=== PATIENT | male | born 1955 | race Caucasian/White ===

== ENCOUNTER → 2020-09-11 09:21 | Outpatient (CLI) | payer OTHER, SELFPAY ==
[2020-08-16 11:03] VITALS: BMI 47.4
--- NOTE | 2020-09-13 09:30 | PFT ---
INTRODUCTION: The patient is a 64-year-old male that presents for pulmonary function studies secondary to a diagnosis of respiratory failure. Respiratory therapy reports good patient effort. Bronchodilators were used during testing. INTERPRETATION: Forced expiration spirometry demonstrates the presence of a very severe large airways obstructive ventilatory defect. There was no significant response to aerosolized bronchodilators, based upon strict ATS criteria. Spirograms are of good quality but do not plateau indicating slow emptying of the lungs. Body plethysmography was performed and revealed a decreased TLC to 3.63 L, 57% of predicted, indicative of a severe restrictive ventilatory impairment. Diffusing capacity by single breath CO is severely reduced at 31% of predicted. IMPRESSION: Irreversible severe mixed ventilatory defect with symmetric reduction in diffusing capacity.
== END ==
PROVIDERS: Referring Provider Internal Medicine Critical Care Medicine; Visit Provider Internal Medicine Critical Care Medicine
DX: J96.11 Chronic respiratory failure with hypoxia (principal)
CPT/HCPCS: 94060; 94726; 94729

== ENCOUNTER → 2020-09-25 11:27 | Outpatient (CLI) | payer OTHER, SELFPAY ==
[2020-08-16 11:03] VITALS: BMI 47.4
[2020-09-25 12:30] VITALS: PULSE 103; PULSE 111; PULSE 119; PULSE 123; PULSE 124; PULSE 130; PULSE 131; PULSE 89; O2SAT 89; O2SAT 90; O2SAT 91; O2SAT 92; O2SAT 93
--- NOTE | 2020-09-25 12:36 | CPS ---
Patient states that he wears 3L of oxygen at home. On room air patients sat's were 89% therefore test was started on 3L. Patients sat's were maintained greater than 90% for the remainder of the test on 3L.
--- NOTE | 2020-09-26 10:16 | PCM.PSN.6M ---
PSN 6 Minute Walk Test 6 Minute Walk Test 6 Minute Walk Test: 6 Minute Walk Test PSN:6-Minute Walk Test Start: 09/25/20 12:33 Freq: Status: Active Protocol: [id number] Document 09/25/20 12:30 ADELE (Rec: 09/25/20 12:38 [id number]) 6 Minute Walk Test Date Performed 09/25/20 Time Performed 12:30 Height 5 ft 9 in Weight: 309 lb Weight in Pounds 309.[address]: Morales Siu Assistive device used: None Pre-test Oxygen Delivery Method Room Air Pulse Ox (%) 89 Pulse Rate (60-100 beats/min) 89 1st minute Oxygen Flow Rate (L/min) (L/min) 3 Oxygen Delivery Method Nasal Cannula Pulse Ox (%) 92 Pulse Rate (60-100 beats/min) 123 H 2nd minute Oxygen Flow Rate (L/min) (L/min) 3 Oxygen Delivery Method Nasal Cannula Pulse Ox (%) 92 Pulse Rate (60-100 beats/min) 111 H 3rd minute Oxygen Flow Rate (L/min) (L/min) 3 Oxygen Delivery Method Nasal Cannula Pulse Ox (%) 92 Pulse Rate (60-100 beats/min) 119 H 4th minute Oxygen Flow Rate (L/min) (L/min) 3 Oxygen Delivery Method Nasal Cannula Pulse Ox (%) 91 Pulse Rate (60-100 beats/min) 124 H 5th minute Oxygen Flow Rate (L/min) (L/min) 3 Oxygen Delivery Method Nasal Cannula Pulse Ox (%) 92 Pulse Rate (60-100 beats/min) 130 H 6th minute Oxygen Flow Rate (L/min) (L/min) 3 Oxygen Delivery Method Nasal Cannula Pulse Ox (%) 90 Pulse Rate (60-100 beats/min) 131 H Post-test Oxygen Flow Rate (L/min) (L/min) 3 Oxygen Delivery Method Nasal Cannula Pulse Ox (%) 93 Pulse Rate (60-100 beats/min) 103 H Dyspnea Guille Scale (0-10) 4 Exertion Guille Scale (6-20) 14 Full Laps Walked 10 Partial Lap, Number of Tiles Walked 28 Total Distance Walked (ft) 618 09/25/20 12:36 Cardiopulmonary Services by Laxmi King Patient states that he wears 3L of oxygen at home. On room air patients sat's were 89% therefore test was started on 3L. Patients sat's were maintained greater than 90% for the remainder of the test on 3L. Initialized on 09/25/20 12:36 - END OF NOTE Interpretation Interpretation: The patient ambulated 618 feet over the course of 6 minutes beginning on room air without assistive devices. Pretesting oxygen saturation was noted to be 89% on room air. The patient was subsequently placed on 3 L/min of oxygen for testing purposes. With ambulation, the jet oxygen saturation was 90%. Recommendations Recommendations: 3 L/min of supplemental oxygen should be utilized at all times.
== END ==
PROVIDERS: Referring Provider Internal Medicine Critical Care Medicine; Visit Provider Internal Medicine Critical Care Medicine
DX: J96.11 Chronic respiratory failure with hypoxia (principal)
CPT/HCPCS: 94618

== ENCOUNTER → 2020-11-06 13:40 | Outpatient (CLI) | payer MEDICARE, SELFPAY ==
[2020-10-12 08:18] VITALS: BMI 47.5
--- NOTE | 2020-11-06 13:53 | RAD_ITS ---
STUDY: X-RAY - LUMBAR SPINE REASON FOR EXAM: Male, 64 years old. BACK PAIN TECHNIQUE: 3 view(s) of the lumbar spine were obtained. COMPARISON: None FINDINGS: Normal lumbar lordosis. There is no substantial scoliosis. There is a normal alignment of the vertebrae. There is multilevel endplate spondylosis of the lumbar vertebrae. There is disc space narrowing L4-L5 L5-S1. There is degenerative change of the SI joints. There phleboliths in the pelvis. The soft tissue structures are unremarkable. RAD/Lumbar Spine 2 or 3 Views IMPRESSION: Degenerative changes of the spine, as detailed above. No apparent acute loss of height or alignment. Electronically Signed: Jany Ray MD at 4:05 EDT Tel , Service support ,
== END ==
PROVIDERS: Referring Provider Anesthesiology Pain Medicine; Visit Provider Anesthesiology Pain Medicine
DX: M54.9 Dorsalgia, unspecified (principal)
CPT/HCPCS: 72100

== ENCOUNTER 2020-11-19 12:04 | Emergency (ER) | payer OTHER, SELFPAY ==
[2020-10-12 08:18] VITALS: BMI 47.5
[2020-11-19] VITALS (9 sets, daily range): BP systolic 123–141; BP diastolic 65–86; PULSE 94–111; RESP 16–22; TEMP 37.1; O2SAT 91–98; BMI 46.5
--- NOTE | 2020-11-19 12:57 | RAD_ITS ---
STUDY: X-RAY CHEST REASON FOR EXAM: Male, 64 years old. Chest pain TECHNIQUE: PA and lateral views of the chest. COMPARISON: None. FINDINGS: EKG electrodes are seen. Increased markings at the lung bases slightly worse on the left side suggestive of either bibasilar atelectasis and/or infiltrates. Blunting of the left costophrenic angle. Normal size heart. Normal mediastinum and hortencia. Normal visualized pulmonary arteries. Normal visualized aortic arch and descending thoracic aorta. There are degenerative changes of the visualized thoracic spine. Normal visualized ribs, clavicles, and shoulders. There is no demonstrated abnormality of the visualized soft tissue structures of the upper abdomen. RAD/Chest PA and Lateral IMPRESSION: Atelectasis and/or infiltrates at the lung bases worse on the left side. There is blunting of the left costophrenic angle. Electronically Signed: Abimael London MD at 13:57 EDT , Service support ,
--- NOTE | 2020-11-19 12:57 | EKG12_ITS ---
Test Reason : SOB Blood Pressure : / mmHG Vent. Rate : 095 BPM Atrial Rate : 095 BPM P-R Int : 146 ms QRS Dur : 072 ms QT Int : 326 ms P-R-T Axes : 041 -23 040 degrees QTc Int : 409 ms Normal sinus rhythm Leftward axis Poor R wave progression Abnormal ECG Confirmed by KAREN HARRELL, SHIV ([id number]), manager editorial NUZHAT CACERES ([id number]) on 11/21/2020 9:25:49 AM Referred By: BB Confirmed By:SHIV JONES MD
--- NOTE | 2020-11-19 12:58 | EDS_ITS ---
HPI History of Present Illness Chief Complaint: Shortness of Breath Informant: patient Onset/Context/Timing Onset: Month(s) Context: gradual Timing: Continuous Current Severity: Mild Maximum Severity: Mild Associated Symptoms Chest Pain: Positive for None Narrative Narrative: 58-year-old male history of lung disease on home O2. He denies COPD. Denies any prior PE. Has had prior pleural effusions. Apparently saw the [facility] on Thursday had a negative chest x-ray. He has had a pleural effusion which she needed surgery drainage before by the [facility] 2 years ago. After that he developed his DVT. He is on no blood thinners. He denies any chest pain hemoptysis. He denies any fever or chills. PE Risk Factors: Positive for Prior DVT or PE; Negative for Cancer, OCP + Smoking + > 35, Recent immobilization, Recent surgery and Recent travel Prior similar symptoms: Yes Recent Illness/Hospitalization: No PFSH [facility] Medical History (Updated 11/19/20 @ 16:[address] Davide Covarrubias MD) Depression Diabetes mellitus type 2, controlled Dyspnea History of pleural effusion Pleural effusion Tobacco abuse Home Medications amlodipine 10 mg-benazepril 20 mg capsule 1 cap PO DAILY 08/16/20 [History Last Taken Unknown] aripiprazole 5 mg tablet 5 mg PO DAILY 08/16/20 [History Last Taken Unknown] ascorbic acid (vitamin C) 500 mg capsule mg PO 08/16/20 [History Last Taken Unknown] atorvastatin 80 mg tablet 80 mg PO DAILY 08/16/20 [History Last Taken Unknown] cyanocobalamin (vitamin B-12) 1,000 mcg capsule 1,000 mcg PO DAILY 08/16/20 [History Last Taken Unknown] furosemide 40 mg tablet 60 mg PO DAILY tablet 08/16/20 [History Last Taken Unknown] gabapentin 300 mg capsule 300 mg PO DAILY 08/16/20 [History Last Taken Unknown] glipizide 10 mg tablet 15 mg PO DAILY tablet 08/16/20 [History Last Taken Unknown] hydroxyzine pamoate 25 mg capsule 25 mg PO TID 08/16/20 [History Last Taken Unknown] melatonin 3 mg capsule 3 mg PO HS PRN 08/16/20 [History Last Taken Unknown] metformin 500 mg tablet 500 mg PO BID 08/16/20 [History Last Taken Unknown] oxycodone-acetaminophen 5 mg-325 mg tablet 1 tablet PO TID PRN 08/16/20 [History Last Taken Unknown] pioglitazone 30 mg tablet 30 mg PO DAILY 08/16/20 [History Last Taken Unknown] polysaccharide iron complex 150 mg iron capsule 150 mg PO DAILY 08/16/20 [History Last Taken Unknown] potassium chloride 20 mEq/15 mL oral liquid 30 meq PO DAILY ml 08/16/20 [History Last Taken Unknown] trazodone 100 mg tablet 300 mg PO DAILY PRN tablet 08/16/20 [History Last Taken Unknown] albuterol sulfate 90 mcg/actuation aerosol inhaler 2 puff INHALATION Q6H PRN 10/12/20 [History Last Taken Unknown] budesonide-formoterol HFA 160 mcg-4.5 mcg/actuation aerosol inhaler 2 puff INHALATION BID 10/12/20 [History Last Taken Unknown] prednisone 40 mg PO DAILY 5 Days #10 tab 11/19/20 [Rx Last Taken Unknown] Allergy/AdvReac Type Severity Reaction Status Date / Time indomethacin [From Indocin] Allergy Unknown Other Verified 11/19/20 12:06 morphine Allergy Unknown Vomiting Verified 11/19/20 12:06 lisinopril AdvReac Unknown Cough Verified 11/19/20 12:06 Surgical History H/O wrist surgery History of ankle surgery History of appendectomy History of hernia surgery History of lung surgery History of pelvic surgery Hx of knee surgery Social History Smoking Status: Former smoker quit date: 05/11/03 pack-years: 9 ROS ROS ED ROS Narrative Complaint shortness of breath. No fever or chills. No chest pain. No new cough. No hemoptysis. Review of Systems ROS Unobtainable: Denies due to encephalopathy Constitutional Constitutional ED: Denies chills or fever(s) Eyes Eyes: Denies change in vision ENT ENT ED: Denies ear pain or sore throat Cardiovascular Cardiovascular: Denies chest pain or palpitations Respiratory/Chest Respiratory/Chest: Reports dyspnea; Denies cough or sputum Gastrointestinal Gastrointestinal: Denies abdominal pain, diarrhea, nausea or vomiting Genitourinary Genitourinary ED: Denies dysuria or hematuria Musculoskeletal Musculoskeletal: Denies myalgias Integumentary Denies rash Neurologic Neurologic: Denies headache(s) Psychiatric Psychiatric: Denies depression Endocrine Endocrinology: Denies polyuria Hematologic/Lymphatic Hematologic/Lymphatic: Denies easy bruising Allergic/Immunologic Allergic/Immunologic ED: Denies urticaria EXAM Physical Exam Narrative Exam Narrative: Or male on oxygen. Vital signs stable afebrile. On 3 L 97%. He does not look septic or toxic. He is in no respiratory distress. HEENT exam unremarkable. Neck nontender no JVD. No lymphadenopathy. Lungs few scant expiratory wheezes. No rales or rhonchi. Heart regular rhythm no murmur. Abdomen soft nontender. Obese. Moving all 4 extremities. Trace edema bilaterally. States that is chronic. Neurologically is awake and alert. No focal motor deficits. Const Vital Signs: 11/19/20 12:05 11/19/20 12:41 11/19/20 12:43 Temperature 98.8 F Temperature Source Temporal Pulse Rate 111 H 97 Respiratory Rate 22 H 20 H Respiratory Effort Normal Non-Labored Respiratory Depth Normal Respiratory Pattern Normal Blood Pressure 123/86 H 126/65 H Blood Pressure Mean 98 85 Pulse Ox 91 97 Oxygen Delivery Method Nasal Cannula Nasal Cannula Nasal Cannula Oxygen Flow Rate (L/min) 3 3 2 11/19/20 12:45 11/19/20 13:14 11/19/20 13:17 Temperature Temperature Source Pulse Rate 94 Respiratory Rate 16 Respiratory Effort Respiratory Depth Respiratory Pattern Normal Blood Pressure Blood Pressure Mean Pulse Ox 97 Oxygen Delivery Method Nasal Cannula Nasal Cannula Oxygen Flow Rate (L/min) 3 3 11/19/20 13:23 11/19/20 15:05 11/19/20 16:02 Temperature Temperature Source Pulse Rate 95 98 100 Respiratory Rate 19 H 16 18 Respiratory Effort Respiratory Depth Respiratory Pattern Blood Pressure 126/83 H 141/76 H Blood Pressure Mean 97 97 Pulse Ox 96 98 96 Oxygen Delivery Method Nasal Cannula Nasal Cannula Nasal Cannula Oxygen Flow Rate (L/min) 3 3 3 Positive well nourished, well developed and obese; Negative for cachectic, contractures or unkempt General Appearance ED: well developed and NAD; Negative for unkempt, cachectic or contractures Nutritional Appearance: obese; Negative for cachectic HEENT Reports moist mucous membranes atraumatic; Negative for trauma or tenderness Eyes PERRL and EOMs intact bilaterally General Eye ED: Negative for pale conjunctiva or scleral icterus Neck no lymphadenopathy, supple, no meningeal signs and no JVD General: Negative for tenderness Resp normal respiratory effort Auscultation: wheezes Cardio regular rate, regular rhythm, S1 normal heart sound, S2 normal heart sound and no murmurs GI non-tender, non-distended and no masses Auscultation: normoactive bowel sounds Palpation: soft; Negative for tender, guarding or rebound tenderness present Back/Spine no CVA tenderness and normal to inspection General Back: Negative for CVA tenderness Extremity normal to inspection General Extremety ED: Negative for edema or tenderness General Extremity: Negative for edema Neuro oriented x3 Sensorium / Orientation: alert, oriented to person, oriented to place and orientation impaired Psych mental status grossly normal Appearance: Negative for unkempt Thought Process: normal thought process Skin no wounds Lesions: no lesions Rashes: no rashes MDM MDM MDM Narrative Medical decision making narrative: Older male with underlying lung disease. Treated home with aerosols. Complaint of shortness of breath for a month. Prior history of pleural effusion prior DVT but no PE. Undergo a cardiac work- up along with a D-dimer. To be treated with DuoNeb aerosol and Solu-Medrol IV. Repeat exam at 4:15 PM patient is doing well. Said his breathing is much improved after the aerosol treatment and the IV steroids. He is comfortably discharged home. He is in no distress. We went over all his test results and chest x-ray. His breathing is clear currently with no wheezing and no distress. Lab Data Attestation: I reviewed the patient's lab results. Lab results narrative: White count 13. Hemoglobin 13. Electrolytes unremarkable gap of 4 creatinine 0.8. High-sensitivity troponin is normal as is his D-dimer at 0.4. Labs: Laboratory Results - last 24 hr 11/19/20 11/19/20 11/19/20 13:25 13:25 13:25 WBC 13.2 H RBC 4.74 Hgb 13.3 Hct 44.4 MCV 93.7 MCH 28.1 MCHC 30.0 L RDW Std Deviation 49.4 H RDW Coeff of Viky 14.3 Plt Count 219 MPV 10.7 Immature Gran % (Auto) 0.400 Neut % (Auto) 79.3 H Lymph % (Auto) 12.6 L [place] % (Auto) 6.8 Eos % (Auto) 0.4 Baso % (Auto) 0.5 Absolute Neuts (auto) 10.4 H Absolute Lymphs (auto) 1.66 Nucleated RBC % 0 PT 13.0 INR 1.0 D-Dimer Quant (PE/DVT) 0.40 Sodium 141 Potassium 3.8 Chloride 104 Carbon Dioxide 33.0 H Anion Gap 4 L BUN 20 H Creatinine 0.82 Estim Creat Clear Calc 88.61 Est GFR (MDRD) Af Amer 120 Est GFR (MDRD) Non-Af 99 BUN/Creatinine Ratio 24.2 H Glucose 139 H Calcium 8.6 Troponin I High Sens 4.4 Radiography Chest X-Ray - ED: 1 View, Read by ED Physician, Read by Radiologist, Heart, Mediastinum, Bony Structures, No Acute Disease and Chronic Changes Diagnostic Testing: Radiology Impression Chest X-Ray 11/19/20 12:57 IMPRESSION: Atelectasis and/or infiltrates at the lung bases worse on the left side. There is blunting of the left costophrenic angle. Electronically Signed: Abimael London MD at 13:57 EDT , Service support , Rhythm Strip Rhythm Strip: Sinus Rhythm Rate: 95 Ectopy: None EKG Initial EKG: Attestation: I personally reviewed and interpreted this EKG as follows: Interpretation: Sinus Rhythm and No Acute Injury Pattern Comments: Normal sinus rhythm rate of 95 no acute signs of acute OK or ischemia. Prior EKG tracings: not available for review Discharge Plan Triage Chief Complaint: Shortness of Breath ED Provider: Davide Covarrubias Dx/Rx/DC Orders Clinical Impression: Dyspnea, COPD exacerbation Instructions: COPD Meds, ED COPD Flare Prescriptions: New prednisone 20 mg tablet 40 mg PO DAILY 5 Days Qty: 10 RF: 0 No Action hydroxyzine pamoate 25 mg capsule 25 mg PO TID RF: 0 amlodipine-benazepril 10-20 mg capsule 1 cap PO DAILY RF: 0 furosemide 40 mg tablet 60 mg PO DAILY RF: 0 ascorbic acid (vitamin C) 500 mg capsule PO RF: 0 trazodone 100 mg tablet 300 mg PO DAILY PRNRF: 0 potassium chloride 20 mEq/15 mL liquid 30 meq PO DAILY RF: 0 glipizide 10 mg tablet 15 mg PO DAILY RF: 0 melatonin 3 mg capsule 3 mg PO HS PRNRF: 0 atorvastatin 80 mg tablet 80 mg PO DAILY RF: 0 aripiprazole 5 mg tablet 5 mg PO DAILY RF: 0 metformin 500 mg tablet 500 mg PO BID RF: 0 gabapentin 300 mg capsule 300 mg PO DAILY RF: 0 cyanocobalamin (vitamin B-12) 1,000 mcg capsule 1,000 mcg PO DAILY RF: 0 pioglitazone 30 mg tablet 30 mg PO DAILY RF: 0 polysaccharide iron complex [Ferrex 150] 150 mg iron capsule 150 mg PO DAILY RF: 0 oxycodone-acetaminophen 5-325 mg tablet 1 tablet PO TID PRNRF: 0 budesonide-formoterol [Symbicort] 160-4.5 mcg/actuation HFA aerosol inhaler 2 puff inhalation BID RF: 0 albuterol sulfate 90 mcg/actuation HFA aerosol inhaler 2 puff inhalation Q6H PRNRF: 0 [facility] Provider[facility] - 3-5 Days if not improving Activity Restrictions/Additional Instructions: [facility] if not [facility]. Use your inhalers as needed. Prednisone daily for the next 5 days. Return to the emergency department if you are feeling worse. Disposition Disposition: Home, Self Care
[2020-11-19] MEDS: Ipratropium/Albuterol Sulfate 3 ML AMPUL.NEB INHALATION (13:13)
[2020-11-19] MEDS: MethylPREDNISolone 125 MG/2 ML Vial IV (13:21)
[2020-11-19 13:51] LABS: Absolute Lymphocyte Count 1.66 X10^3/uL (0.83-4.51); Absolute Neutrophil Count 10.4 X10^3/uL (2.0-7.7); Basophil# 0.06 X10^3/uL; Basophil% 0.5 % (0-1); Eosinophil# 0.05 X10^3/uL; Eosinophils% 0.4 % (0-5); Hematocrit 44.4 % (40-54); Hemoglobin 13.3 g/dL (13.0-16.5); Lymphocyte # 1.66 X10^3/ul (0.83-4.51); Lymphocyte % 12.6 % (19-41); Mean Corpuscular Hgb 28.1 pg (27.0-32.0); Mean Corpuscular Volume 93.7 fL (80-94); Mean Platelet Vol. 10.7 fl (6.2-12.0); Monocyte# 0.89 X10^3/uL; Monocyte% 6.8 % (0-10); NRBC Flagged by Analyzer 0 % (0-5); Neutrophil # 10.44 X10^3/uL (2.7-7.7); Neutrophil % 79.3 % (47-70); Platelet Count 219 K/mm3 (150-450); RBC Distribution Width CV 14.3 % (11.6-14.6); RBC Distribution Width SD 49.4 fl (35.1-43.9); Red Blood Count 4.74 M/mm3 (4.6-6.2); White Blood Count 13.2 K/mm3 (4.4-11.0)
[2020-11-19 13:52] LABS: Anion Gap 4 (5-15); BUN 20 mg/dL (7-18); BUN/Creat Ratio 24.2 RATIO (10-20); Calcium,Total 8.6 mg/dL (8.5-10.1); Chloride 104 mmol/L (98-107); Creatinine, Serum 0.82 mg/dL (0.70-1.30); EST Glomerular Filtration Rate 99 mL/min (>60); Est Glom Filt Rate - Afr Amer 120 mL/min (>60); Estimated Creatinine Clearance 88.61 ml/min; Glucose 139 mg/dL (74-106); Potassium 3.8 mmol/L (3.5-5.1); Sodium Level 141 mmol/L (136-145); Troponin-I HS 4.4 pg/mL (3.0-78.5)
== END 2020-11-19 16:39 | disposition home or self-care (01) ==
PROVIDERS: Emergency Provider Emergency Medicine
DX: R06.00 Dyspnea, unspecified (principal); J44.1 Chronic obstructive pulmonary disease with (acute) exacerbation; E66.9 Obesity, unspecified; Z87.891 Personal history of nicotine dependence; Z86.718 Personal history of other venous thrombosis and embolism
CPT/HCPCS: 71046; 80048; 84484; 85025; 85379; 85610; 93005; 94640; 96374; 99284; A4216

== ENCOUNTER → 2021-03-08 16:54 | Outpatient (CLI) | payer OTHER, SELFPAY ==
--- NOTE | 2021-03-08 16:55 | MRI_ITS ---
STUDY: MRI LUMBAR SPINE WITH AND WITHOUT CONTRAST REASON FOR EXAM: Male, 65 years old. pain low back and left leg, prev lumbar [id number] TECHNIQUE: Standardized fat and water weighted pulse sequences were obtained in the sagittal and axial planes. was administered for the contrast portion of the examination. COMPARISON: November 06 2020 FINDINGS: T12-L1: Normal endplates. Normal disc height, hydration and morphology. Normal bilateral facet joints. Normal central canal and bilateral lateral recesses. Normal bilateral intervertebral neural foramina. Normal lumbar lordosis. There is no substantial scoliosis. Normal conus medullaris that terminates at the T12-L1. There are right renal cysts. L1-2: Normal endplates. Normal disc height, hydration and morphology. Normal bilateral facet joints. Normal central canal and bilateral lateral recesses. Normal bilateral intervertebral neural foramina. L2-3: Normal endplates. Minimally decreased disc height, altered hydration and degenerative morphology. Normal bilateral facet joints. Normal central canal and bilateral lateral recesses. Normal bilateral intervertebral neural foramina. There is mildly edematous flavum degeneration. L3-4: Normal endplates. Near-normal disc height, altered hydration and degenerative bulge morphology. Facet and ligamentum flavum are degenerated with hypertrophic thickening. Thecal sac is moderately to severely stenotic. There is a 3 mm left facet synovial intraspinal cyst contributing to thecal sac compression. Foramina are moderately stenotic bilaterally. L4-5: Normal endplates. Normal disc height, hydration and morphology. Degenerated bilateral facet joints. Normal central canal and bilateral lateral recesses. Moderate bilateral foraminal stenosis. L5-S1: Endplates are degenerated. Disc height is decreased with altered hydration and diffuse degenerative bulge morphology. Canal is patent. Thecal sac is normal. There is minor left lateral recess stenosis with patent right recess. Foramina are severely stenotic bilaterally. Normal visualized sacral ala. Normal visualized paraspinous soft tissue structures. MRI/Spine Lumbar (Routine) IMPRESSION: 1. L3-L4 moderate to severe spondylotic thecal sac stenosis. 2. L5-S1 bilateral severe foraminal stenosis. Electronically Signed: Laura Drummond MD at 21:03 EDT Tel , Service support ,
== END ==
PROVIDERS: Referring Provider Orthopaedic Surgery; Visit Provider Orthopaedic Surgery
DX: M51.26 Other intervertebral disc displacement, lumbar region (principal)
CPT/HCPCS: 72148

== ENCOUNTER 2021-05-01 15:13 | Emergency (ER) | payer OTHER, SELFPAY ==
[2021-05-01 15:14] VITALS: BP 160/76; PULSE 99; RESP 17; TEMP 35.9; O2SAT 94; BMI 46.2
--- NOTE | 2021-05-01 16:10 | EX.ED.DYSGE1 ---
HPI History of Present Illness Chief Complaint: Edema Informant: patient Onset/Context/Timing Onset: Days (2) Context: Gradual Onset Timing: Continuous Quality: Burning Location: Bilateral lower legs Worsened by: Nothing Relieved by: Silvadene cream Narrative Narrative: Patient presents with lower extremity edema and serous drainage from his lower legs that has been getting worse over the past 2 days. Patient admits to burning pain in his lower legs. Patient has been using Silvadene cream which has been helping. Patient denies any fevers or chills. Patient admits to increasing pain in his legs and feet. Patient denies any trauma or injury. Patient denies any shortness of breath or cough. Patient denies any chest pain. [facility] Medical History (Updated 05/01/21 @ 19:[address] Andre Jarvis, ) Depression Diabetes mellitus type 2, controlled Dyspnea History of pleural effusion Pleural effusion Tobacco abuse Home Medications amlodipine 10 mg-benazepril 20 mg capsule 1 cap PO DAILY 08/16/20 [History Last Taken Unknown] aripiprazole 5 mg tablet 5 mg PO DAILY 08/16/20 [History Last Taken Unknown] ascorbic acid (vitamin C) 500 mg capsule mg PO 08/16/20 [History Last Taken Unknown] atorvastatin 80 mg tablet 80 mg PO DAILY 08/16/20 [History Last Taken Unknown] cyanocobalamin (vitamin B-12) 1,000 mcg capsule 1,000 mcg PO DAILY 08/16/20 [History Last Taken Unknown] furosemide 40 mg tablet 60 mg PO DAILY tablet 08/16/20 [History Last Taken Unknown] gabapentin 300 mg capsule 300 mg PO DAILY 08/16/20 [History Last Taken Unknown] glipizide 10 mg tablet 15 mg PO DAILY tablet 08/16/20 [History Last Taken Unknown] hydroxyzine pamoate 25 mg capsule 25 mg PO TID 08/16/20 [History Last Taken Unknown] melatonin 3 mg capsule 3 mg PO HS PRN 08/16/20 [History Last Taken Unknown] metformin 500 mg tablet 500 mg PO BID 08/16/20 [History Last Taken Unknown] oxycodone-acetaminophen 5 mg-325 mg tablet 1 tablet PO TID PRN 08/16/20 [History Last Taken Unknown] pioglitazone 30 mg tablet 30 mg PO DAILY 08/16/20 [History Last Taken Unknown] polysaccharide iron complex 150 mg iron capsule 150 mg PO DAILY 08/16/20 [History Last Taken Unknown] potassium chloride 20 mEq/15 mL oral liquid 30 meq PO DAILY ml 08/16/20 [History Last Taken Unknown] trazodone 100 mg tablet 300 mg PO DAILY PRN tablet 08/16/20 [History Last Taken Unknown] albuterol sulfate 90 mcg/actuation aerosol inhaler 2 puff INHALATION Q6H PRN 10/12/20 [History Last Taken Unknown] budesonide-formoterol HFA 160 mcg-4.5 mcg/actuation aerosol inhaler 2 puff INHALATION BID 10/12/20 [History Last Taken Unknown] amoxicillin-pot clavulanate 875 mg PO Q12H #20 tablet 05/01/21 [Rx Last Taken Unknown] Allergy/AdvReac Type Severity Reaction Status Date / Time indomethacin [From Indocin] Allergy Unknown Other Verified 05/01/21 15:14 morphine Allergy Unknown Vomiting Verified 05/01/21 15:14 lisinopril AdvReac Unknown Cough Verified 05/01/21 15:14 Surgical History H/O wrist surgery History of ankle surgery History of appendectomy History of hernia surgery History of lung surgery History of pelvic surgery Hx of knee surgery Social History Smoking Status: Former smoker quit date: 05/11/03 pack-years: 9 ROS ROS ED Constitutional Constitutional ED: Denies chills or fever(s) Eyes Eyes: Denies blurry vision or change in vision ENT ENT ED: Denies rhinorrhea or sore throat Cardiovascular Cardiovascular: Denies chest pain or palpitations Respiratory/Chest Respiratory/Chest: Denies cough or dyspnea Gastrointestinal Gastrointestinal: Denies nausea or vomiting Genitourinary Genitourinary ED: Denies dysuria or hematuria Musculoskeletal Musculoskeletal: Reports back pain; Denies neck pain Integumentary Reports rash; Denies Abrasions Neurologic Neurologic: Denies headache(s) or weakness Allergic/Immunologic Allergic/Immunologic ED: Denies mouth swelling or urticaria EXAM Physical Exam Const Vital Signs: 05/01/21 15:14 05/01/21 17:12 05/01/21 17:14 Temperature 96.7 F L Temperature Source Temporal Pulse Rate 99 92 Respiratory Rate 17 15 Respiratory Effort Normal Non-Labored Respiratory Pattern Normal Blood Pressure 160/76 H 155/74 H Blood Pressure Mean 104 101 Pulse Ox 94 96 Oxygen Delivery Method Nasal Cannula Nasal Cannula Oxygen Flow Rate (L/min) 3 3 Positive well nourished, well developed and obese General Appearance ED: well developed Nutritional Appearance: obese HEENT Reports moist mucous membranes Neck supple and no JVD Resp normal respiratory effort and clear to auscultation bilaterally Cardio regular rate and regular rhythm GI normal to inspection, nondistended, normoactive bowel sounds and non-tender Palpation: soft Extremity Extremity Narrative: There is tenderness and 2+ pitting edema of the calves bilaterally. There is some serous drainage noted. There is some blistering formation noted. There are open ulcerations noted over the lower legs bilaterally as well as the plantar surface of the second and fourth toes on the left. There is some mild erythema and warmth. Pedal pulses are equal bilateral. Sensation was intact to light touch in all digits. Capillary refill was less than 2 seconds in all digits. Neuro oriented x3, CN's II-XII intact bilaterally and no sensory deficits noted Sensorium / Orientation: alert Motor Exam: strength 5/5 throughout Psych mental status grossly normal MDM MDM MDM Narrative Medical decision making narrative: CBC was obtained and was within normal limits. Comprehensive metabolic profile was essentially within normal limits. B-natriuretic peptide was normal. Urinalysis shows leukocyte esterase of 500 with 5-10 white blood cells. Blood cultures were obtained and are pending. Patient was given a dose of [place] here. Patient was given a dose of Unasyn here. Patient was given prescriptions for Keflex. Patient was instructed continue using the Silvadene cream or use triple antibiotic ointment to his legs. Patient was instructed to follow-up with his primary care physician in 5 to 7 days. Patient understood and was agreeable with the plan. All questions were answered. Lab Data Attestation: I reviewed the patient's lab results. Labs: Laboratory Results - last 24 hr 05/01/21 05/01/21 05/01/21 15:45 15:45 15:45 WBC 8.8 RBC 4.75 Hgb 13.6 Hct 43.5 MCV 91.6 MCH 28.6 MCHC 31.3 L RDW Std Deviation 49.1 H RDW Coeff of Viky 14.6 Plt Count 236 MPV 10.8 Immature Gran % (Auto) 0.300 Neut % (Auto) 72.4 H Lymph % (Auto) 16.4 L [place] % (Auto) 8.1 Eos % (Auto) 2.2 Baso % (Auto) 0.6 Absolute Neuts (auto) 6.3 Absolute Lymphs (auto) 1.44 Nucleated RBC % 0 Sodium 139 Potassium 4.1 Chloride 101 Carbon Dioxide 34.0 H Anion Gap 4 L BUN 11 Creatinine 0.78 Estim Creat Clear Calc 71.68 Est GFR (MDRD) Af Amer 128 Est GFR (MDRD) Non-Af 106 BUN/Creatinine Ratio 14.1 Glucose 156 H Calcium 9.0 Total Bilirubin 0.40 AST 17 ALT 29 Alkaline Phosphatase 148 H B-Natriuretic Peptide 5.6 Total Protein 7.2 Albumin 3.2 Globulin 4.0 Albumin/Globulin Ratio 0.8 L Urine Color Urine Clarity Urine pH Ur Specific [place] Urine Protein Urine Glucose (UA) Urine Ketones Urine Occult Blood Urine Nitrite Urine Bilirubin Urine Urobilinogen Ur Leukocyte Esterase Urine RBC Urine WBC Ur Squamous Epith Cells Urine Bacteria Urine Mucus 05/01/21 16:28 WBC RBC Hgb Hct MCV MCH MCHC RDW Std Deviation RDW Coeff of Viky Plt Count MPV Immature Gran % (Auto) Neut % (Auto) Lymph % (Auto) [place] % (Auto) Eos % (Auto) Baso % (Auto) Absolute Neuts (auto) Absolute Lymphs (auto) Nucleated RBC % Sodium Potassium Chloride Carbon Dioxide Anion Gap BUN Creatinine Estim Creat Clear Calc Est GFR (MDRD) Af Amer Est GFR (MDRD) Non-Af BUN/Creatinine Ratio Glucose Calcium Total Bilirubin AST ALT Alkaline Phosphatase B-Natriuretic Peptide Total Protein Albumin Globulin Albumin/Globulin Ratio Urine Color Yellow Urine Clarity Clear Urine pH 8.0 Ur Specific [place] 1.010 Urine Protein Negative Urine Glucose (UA) Normal Urine Ketones Negative Urine Occult Blood Negative Urine Nitrite Negative Urine Bilirubin Negative Urine Urobilinogen Normal Ur Leukocyte Esterase 500 H Urine RBC 0 SEEN Urine WBC 5-10 SEEN Ur Squamous Epith Cells 0-5 SEEN Urine Bacteria 1+ Urine Mucus 0 SEEN Discharge Plan Triage Chief Complaint: Edema ED Provider: Andre Jarvis Dx/Rx/DC Orders Clinical Impression: Cellulitis of both lower extremities Instructions: ED Cellulitis, ED Lymphedema Prescriptions: New amoxicillin-pot clavulanate [amoxicillin-pot clavulanate] 875 MG tablet 875 mg PO Q12H Qty: 20 RF: 0 No Action hydroxyzine pamoate 25 mg capsule 25 mg PO TID RF: 0 amlodipine-benazepril 10-20 mg capsule 1 cap PO DAILY RF: 0 furosemide 40 mg tablet 60 mg PO DAILY RF: 0 ascorbic acid (vitamin C) 500 mg capsule PO RF: 0 trazodone 100 mg tablet 300 mg PO DAILY PRNRF: 0 potassium chloride 20 mEq/15 mL liquid 30 meq PO DAILY RF: 0 glipizide 10 mg tablet 15 mg PO DAILY RF: 0 melatonin 3 mg capsule 3 mg PO HS PRNRF: 0 atorvastatin 80 mg tablet 80 mg PO DAILY RF: 0 aripiprazole 5 mg tablet 5 mg PO DAILY RF: 0 metformin 500 mg tablet 500 mg PO BID RF: 0 gabapentin 300 mg capsule 300 mg PO DAILY RF: 0 cyanocobalamin (vitamin B-12) 1,000 mcg capsule 1,000 mcg PO DAILY RF: 0 pioglitazone 30 mg tablet 30 mg PO DAILY RF: 0 polysaccharide iron complex [Ferrex 150] 150 mg iron capsule 150 mg PO DAILY RF: 0 oxycodone-acetaminophen 5-325 mg tablet 1 tablet PO TID PRNRF: 0 budesonide-formoterol [Symbicort] 160-4.5 mcg/actuation HFA aerosol inhaler 2 puff inhalation BID RF: 0 albuterol sulfate 90 mcg/actuation HFA aerosol inhaler 2 puff inhalation Q6H PRNRF: 0 [facility] [facility] [Primary Care Provider] - 5-7 Days Disposition Disposition: Home, Self Care
[2021-05-01] MEDS: HYDROcodone Bitartrate/Apap 5/325 Tablet PO (16:15)
[2021-05-01 16:27] LABS: Absolute Lymphocyte Count 1.44 X10^3/uL (0.83-4.51); Absolute Neutrophil Count 6.3 X10^3/uL (2.0-7.7); Basophil# 0.05 X10^3/uL; Basophil% 0.6 % (0-1); Eosinophil# 0.19 X10^3/uL; Eosinophils% 2.2 % (0-5); Hematocrit 43.5 % (40-54); Hemoglobin 13.6 g/dL (13.0-16.5); Lymphocyte # 1.44 X10^3/ul (0.83-4.51); Lymphocyte % 16.4 % (19-41); Mean Corp Hgb Conc 31.3 g/dL (32-36); Mean Corpuscular Hgb 28.6 pg (27.0-32.0); Mean Corpuscular Volume 91.6 fL (80-94); Mean Platelet Vol. 10.8 fl (6.2-12.0); Monocyte# 0.71 X10^3/uL; Monocyte% 8.1 % (0-10); NRBC Flagged by Analyzer 0 % (0-5); Neutrophil # 6.34 X10^3/uL (2.7-7.7); Neutrophil % 72.4 % (47-70); Platelet Count 236 K/mm3 (150-450); RBC Distribution Width CV 14.6 % (11.6-14.6); RBC Distribution Width SD 49.1 fl (35.1-43.9); Red Blood Count 4.75 M/mm3 (4.6-6.2); White Blood Count 8.8 K/mm3 (4.4-11.0)
[2021-05-01 16:33] LABS: Mucous, Urine 0 SEEN /hpf (<or=2+); Red Blood Cells-Urine 0 SEEN /hpf (0-5)
[2021-05-01 16:42] LABS: ALB/GLOB Ratio 0.8 RATIO (0.9-2.4); AST(SGOT) 17 U/L (15-37); Alanine Aminotransfer ALT/SGPT 29 U/L (16-61); Albumin, Serum 3.2 g/dL (3.2-5.0); Alkaline Phosphatase 148 U/L (45-117); Anion Gap 4 (5-15); BUN 11 mg/dL (7-18); BUN/Creat Ratio 14.1 RATIO (10-20); Chloride 101 mmol/L (98-107); Creatinine, Serum 0.78 mg/dL (0.70-1.30); EST Glomerular Filtration Rate 106 mL/min (>60); Est Glom Filt Rate - Afr Amer 128 mL/min (>60); Estimated Creatinine Clearance 71.68 ml/min; Glucose 156 mg/dL (74-106); Potassium 4.1 mmol/L (3.5-5.1); Protein, Total 7.2 g/dL (6.4-8.2); Sodium Level 139 mmol/L (136-145)
[2021-05-01 16:47] LABS: BNP,B-Type NATRIURETIC PEPTIDE 5.6 pg/mL (0-100)
[2021-05-01 16:55] LABS: Color, Urine Yellow (Yellow); Glucose, Dipstick Normal (Normal); Ketone-Dipstick Negative (Negative); Leukocyte Esterase-Dipstick 500 /ul (Negative); Nitrite-Dipstick Negative (Negative); Occult Blood-Urine Negative /ul (Negative); Protein-Dipstick Negative (Negative); Urine Bilirubin Dipstick Negative (Negative); Urine Clarity Clear (Clear); Urine Urobilinogen Normal (Normal)
[2021-05-01 17:02] LABS: Bacteria 1+ /hpf (None Seen); Squamous Epithelial Cells - UA 0-5 SEEN /hpf (0-5); White Blood Cells 5-10 SEEN /hpf (0-5)
[2021-05-01 17:14] VITALS: BP 155/74; PULSE 92; RESP 15; O2SAT 96
== END 2021-05-01 19:29 | disposition home or self-care (01) ==
PROVIDERS: Emergency Provider Emergency Medicine
DX: L03.115 Cellulitis of right lower limb (principal); L03.116 Cellulitis of left lower limb; E66.9 Obesity, unspecified; Z87.891 Personal history of nicotine dependence
CPT/HCPCS: 80053; 81001; 83880; 85025; 87040; 96365; 96366; 99284; J7050; A4216; J0295